=== PATIENT | male | born 1940 | race Caucasian/White ===

== ENCOUNTER 2022-01-13 23:23 | Emergency (ER) | payer MEDICARE, OTHER ==
[~2022-01-13] VITALS: Ht 185.4 cm; Wt 129.3 kg
[2022-01-14] MEDS ORDERED: Morphine 4mg INJECTION 4 MG/ML INJ ONE (00:06)
[2022-01-14] MEDS ORDERED: SODIUM CHLORIDE 0.9% 1000ML 1,000 ML ONE (00:07)
[2022-01-14] MEDS ORDERED: ONDANSETRON HCL INJ 2MG/ML 2ML 2 MG/ML VIAL ONE (00:07)
[2022-01-14 00:15] LABS: BASOPHILS # (AUTO) 0.1 (0.0-0.1); BASOPHILS % 0.5 % (0.0-1.0); EOSINOPHILS # (AUTO) 1.3 (0.0-0.4); EOSINOPHILS % 8.7 % (0.0-6.0); HEMATOCRIT 40.9 % (38.2-49.6); HEMOGLOBIN 12.5 g/dL (14.0-18.0); LYMPHOCYTES # (AUTO) 1.7 (1.0-3.2); LYMPHOCYTES % 11.9 % (18.0-39.1); MEAN CORPUSCULAR HEMOGLOBIN 29.6 pg (28-32); MEAN CORPUSCULAR HGB CONC 30.6 g/dL (31-35); MEAN CORPUSCULAR VOLUME 96.9 fL (81-99); MONOCYTES # (AUTO) 1.1 (0.2-0.8); MONOCYTES % 7.8 % (4.4-11.3); NEUTROPHILS # (AUTO) 10.2 (2.1-6.9); NEUTROPHILS % 70.5 % (38.7-80.0); PLATELET COUNT 298 x10e3/uL (140-360); RED BLOOD COUNT 4.22 x10e6/uL (4.3-5.7)
[2022-01-14 00:26] LABS: INR 1.04; PROTHROMBIN TIME 14.5 seconds (11.9-14.5)
[2022-01-14 00:27] LABS: PARTIAL THROMBOPLASTIN TIME 28.5 seconds (23.8-35.5)
[2022-01-14 00:36] LABS: ALBUMIN 4.1 g/dL (3.5-5.0); ALBUMIN/GLOBULIN RATIO 1.2 (0.8-2.0); ANION GAP 24.3 mmol/L (8-16); CALCIUM 9.6 mg/dL (8.4-10.2); CREATININE, SERUM 1.03 mg/dL (0.72-1.25); POTASSIUM 4.3 mmol/L (3.5-5.1)
[2022-01-14 00:58] LABS: CREATINE KINASE MB 1.3 ng/mL (0-5.0)
[2022-01-14] MEDS ORDERED: SODIUM CHLORIDE 0.9% 100 ML ONE (01:59)
[2022-01-14] MEDS ORDERED: IOPAMIDOL 370 MG/ML 100 ML INFUS..BTL INJ ONE (01:59)
[2022-01-14 02:16] VITALS: BP 132/65
[2022-01-14] MEDS ORDERED: ACETAMINOPHEN 325 MG TAB PO ONE (02:30)
[2022-01-14] MEDS ORDERED: ACETAMINOPHEN 325 MG TAB ONE (02:39)
== END 2022-01-14 02:41 | disposition home or self-care (01) ==
LOC: ER 23:31
DX: R07.89 Other chest pain (principal); R91.8 Other nonspecific abnormal finding of lung field; R94.31 Abnormal electrocardiogram [ECG] [EKG]; Z20.822 Contact with and (suspected) exposure to COVID-19
CPT/HCPCS: 36415; 71045; 71260; 80053; 82550; 82553; 84484; 85025; 85610; 85730; 93005; 99284; J2270; J2405; J7030; J7050; Q9967; U0002